=== PATIENT | male | born 1950 | race Caucasian/White ===

== ENCOUNTER 2019-01-26 15:14 | Emergency (ER) | payer MEDICARE ==
[2019-01-26 16:01] LABS: #Eosinphils 0.1 thou/uL (0.0-0.7); #Monocytes 0.6 thou/uL (0.11-0.59); #Neutrophils 2.1 thou/uL (1.40-6.50); %Basophils 0.3 % (0.0-1.0); %Eosinophils 1.7 % (0.0-10.0); %Lymphocytes 41.6 % (21.0-51.0); %Monocytes 12.3 % (0.0-10.0); %Neutrophils 44.1 % (42.0-75.0); Mean Corpuscular HGB CONC 34.7 g/dL (32.0-36.0); Mean Corpuscular Hemoglobin 33.9 pg (27.0-31.0); Mean Corpuscular Volume 97.7 fL (78.0-98.0); Mean Platelet Volume 6.2 fL (7.4-10.4); Platelet Count 189 thou/uL (130-400); RBC Distribution Width 12.1 % (11.5-14.5); Red Blood Cell (RBC) Count 4.43 mill/uL (4.70-6.10); White Blood Cell (WBC) Count 4.8 thou/uL (4.8-10.8)
[2019-01-26] MEDS ORDERED: Nitroglycerin 2% Ointment 1 INCH/1 GM Packet ONE (16:14)
[2019-01-26] MEDS ORDERED: Famotidine/PF 20 mg/2ml Vial ONE (16:14)
[2019-01-26] MEDS ORDERED: Aspirin Chewable 81 MG TAB ONE (16:14)
[2019-01-26] MEDS ORDERED: Famotidine 20 MG TAB ONE (16:15)
--- NOTE | 2019-01-26 16:18 | RAD ---
CHEST 1 VIEW PORTABLE: Date: 01/26/19 HISTORY: Chest discomfort, chest pain. COMPARISON: 07/21/10. FINDINGS: Monitor leads overlie the chest. Heart size is within normal limits. Lungs are clear. IMPRESSION: No significant acute intrathoracic disease. POS: [facility]
[2019-01-26 16:25] LABS: ALT (SGPT) 15 U/L (8-55); AST (SGOT) 15 U/L (5-34); Albumin 4.3 g/dL (3.4-4.8); Alkaline Phosphatase 42 U/L (40-110); Anion Gap 12 mmol/L (10-20); BUN (Urea Nitrogen) 18 mg/dL (8.4-25.7); Bilirubin, Total 0.5 mg/dL (0.2-1.2); Calc. Creatinine Clearance 0 mL/min (70-130); Calcium 9.2 mg/dL (7.8-10.44); Carbon Dioxide 25 mmol/L (23-31); Chloride 105 mmol/L (98-107); Estimated GFR-MDRD 81; Globulin 2.5 g/dL (2.4-3.5); Glucose 83 mg/dL (80-115); Potassium 3.7 mmol/L (3.5-5.1); Protein, Total 6.8 g/dL (5.8-8.1); Sodium 138 mmol/L (136-145)
[2019-01-26 19:08] LABS: Troponin I Less than 0.010 ng/mL (< 0.028)
--- NOTE | 2019-01-28 14:43 | EKG ---
Test Reason : Blood Pressure : / mmHG Vent. Rate : 051 BPM Atrial Rate : 051 BPM P-R Int : 180 ms QRS Dur : 086 ms QT Int : 426 ms P-R-T Axes : 018 -24 -07 degrees QTc Int : 392 ms Sinus bradycardia Moderate voltage criteria for LVH, may be normal variant Borderline ECG #2 Confirmed by RICARDO WALLIS DO ([id number]), development editor JASWINDER OLEARY ([id number] on 01/28/2019 2:43:29 PM Referred By: Confirmed By:RICARDO WALLIS DO
--- NOTE | 2019-01-28 14:43 | EKG ---
Test Reason : Blood Pressure : / mmHG Vent. Rate : 066 BPM Atrial Rate : 066 BPM P-R Int : 176 ms QRS Dur : 090 ms QT Int : 390 ms P-R-T Axes : 051 -25 012 degrees QTc Int : 408 ms Normal sinus rhythm Normal ECG Confirmed by RICARDO WALLIS DO ([id number]), film editor JASWINDER OLEARY ([id number]) on 01/28/2019 2:42:44 PM Referred By: Confirmed By:RICARDO WALLIS DO
== END 2019-01-26 20:04 | disposition home or self-care (01) ==
LOC: ERS 15:14
DX: R07.9 Chest pain, unspecified (principal); E78.00 Pure hypercholesterolemia, unspecified; Z79.899 Other long term (current) drug therapy
CPT/HCPCS: 36415; 71045; 80053; 83690; 84484; 85025; 93005; S0028

== ENCOUNTER 2021-12-15 14:43 | Emergency (ER) | payer MEDICARE ==
[~2021-12-15 14:43] MED LIST: Iopamidol-370 76% 500 ML 1 ML ONE
[2021-12-15 15:53] LABS: #Lymphocytes 0.4 thou/uL (1.20-3.40); #Monocytes 0.2 thou/uL (0.11-0.59); %Eosinophils 0.3 % (0.0-10.0); %Lymphocytes 5.5 % (21.0-51.0); %Monocytes 2.9 % (0.0-10.0); %Neutrophils 91.3 % (42.0-75.0); Hemoglobin 15.7 g/dL (14.0-18.0); Mean Corpuscular HGB CONC 32.9 g/dL (32.0-36.0); Mean Corpuscular Hemoglobin 32.5 pg (27.0-31.0); Mean Corpuscular Volume 98.8 fL (78.0-98.0); Platelet Count 189 thou/uL (130-400); RBC Distribution Width 12.2 % (11.5-14.5); Red Blood Cell (RBC) Count 4.83 mill/uL (4.70-6.10); White Blood Cell (WBC) Count 6.6 thou/uL (4.8-10.8)
[2021-12-15 16:14] LABS: ALT (SGPT) 17 U/L (8-55); AST (SGOT) 15 U/L (5-34); Albumin 4.3 g/dL (3.4-4.8); Alkaline Phosphatase 41 U/L (40-110); Anion Gap 16 mmol/L (10-20); BUN (Urea Nitrogen) 25 mg/dL (8.4-25.7); Bilirubin, Total 0.8 mg/dL (0.2-1.2); Calc. Creatinine Clearance 0 mL/min (70-130); Calcium 9.5 mg/dL (7.8-10.44); Carbon Dioxide 24 mmol/L (23-31); Chloride 102 mmol/L (98-107); Estimated GFR 82; Globulin 2.9 g/dL (2.4-3.5); Glucose 116 mg/dL (80-115); Lipase 16 U/L (8-78); Potassium 4.3 mmol/L (3.5-5.1); Protein, Total 7.2 g/dL (5.8-8.1); Sodium 138 mmol/L (136-145)
[2021-12-15] MEDS ORDERED: Ondansetron PF 4 MG/2 ML Vial ONE (17:56)
[2021-12-15] MEDS ORDERED: Mag-Al 1200 mg/1200 mg/30 ML UDCUP ONE (17:56)
[2021-12-15] MEDS ORDERED: Lidocaine Viscous Sol 2% 15 ml UD Cup ONE (17:56)
[2021-12-15] MEDS ORDERED: Famotidine/PF 20 mg/2ml Vial ONE (17:56)
[2021-12-15 19:48] LABS: Bacteria/HPF None Seen HPF (None Seen); Bilirubin Negative (Negative); Blood, Urine Negative (Negative); Clarity Clear (Clear); Glucose, Urine (Dipstick) Normal (Negative); Ketone, Urine Negative (Negative); Leukocyte Negative Leu/uL (Negative); Nitrite Negative (Negative); Protein, Urine (Dipstick) Negative (Neg-Trace); RBC/HPF 0-3 HPF (0-3); Specific Gravity, Urine 1.033 (1.002-1.036); Squamous Epithelial None Seen HPF (0-3); Urobilinogen Normal mg/dL (Less than 2); WBC/HPF 0-3 HPF (0-3); pH, Urine 6.5 (5.0-9.0)
== END 2021-12-15 19:42 | disposition home or self-care (01) ==
LOC: ERS 14:43
DX: K21.9 Gastro-esophageal reflux disease without esophagitis (principal); E78.00 Pure hypercholesterolemia, unspecified; Z79.899 Other long term (current) drug therapy
CPT/HCPCS: 36415; 71045; 74177; 80053; 81003; 83690; 84484; 85025; 93005; 94760; 96374; 96375; J2405; Q9967; S0028